=== PATIENT | male | born 1970 | race Caucasian/White ===

== ENCOUNTER 2019-01-29 10:46 | Emergency (ER) | payer SELFPAY ==
[~2019-01-29] VITALS: Ht 180.3 cm; Wt 88.5 kg
[~2019-01-29 10:46] MED LIST: GENT3.5O18 OD; HYDR-1231 PO
[2019-01-29] MEDS ORDERED: ASPIRIN 81 MG CHEW (CHILDREN'S ASA) PO ONE (11:30)
--- NOTE | 2019-01-29 11:33 | ED Chest Pain ---
General Chief Complaint: Chest Wall Stated Complaint: HIGH BP;NECK PAIN Nursing Triage Note: pt arrives from [facility] with c/o chest pain x3 days. pt states this pain radiates to neck. pt states history of htn. pt denies cough, n/v/d/fever. pt denies taking asa. pt states he has been painting his house for 3 days as well. Nursing Sepsis Screen: No Definite Risk Source: patient Exam Limitations: no limitations History of Present Illness Date Seen by Provider: Jan 29, 2019 Time Seen by Provider: 11:31 Initial Comments To ER per private vehicle with reports of right-sided chest pain that radiates into the right side of his neck for 3 days. History of hypertension. No cough. Slight shortness of breath. He's been painting his house for the past few days which he thinks maybe contributed to this pain. Pain is in the right side of his neck as well. Currently has several bad teeth and is scheduled to have these removed by Dr. Saleh tomorrow. He is on antibiotic. His main concern is that his infection has spread from his mouth to his neck or chest. Timing/Duration: 2-3 days Severity/Quality: moderate Location: central Radiation: neck ASA po PRODUCTION DIRECTOR: No NTG SL PRODUCTION DIRECTOR: No Associated Symptoms: shortness of breath Allergies and Home Medications Allergies Coded Allergies: No Known Drug Allergies (Unverified , 10/18/13) Home Medications Gentamicin Sulfate 3.5 Gm Oint..gm., 0 OD TID APPLY THIN STRIP Prescribed by: NADIRA YADAV on 10/18/13 1413 Hydrocodone Bit/Acetaminophen 1 Tab Tablet, 1-2 TAB PO Q6H PRN for PAIN Prescribed by: NADIRA YADAV on 10/18/13 1413 Patient Home Medication List Home Medication List Reviewed: Yes Review of Systems Review of Systems Constitutional: see HPI EENTM: No Symptoms Reported Respiratory: No Symptoms Reported Cardiovascular: No Symptoms Reported Gastrointestinal: See HPI Genitourinary: No Symptoms Reported Musculoskeletal: see HPI Skin: no symptoms reported Psychiatric/Neurological: No Symptoms Reported Endocrine: No Symptoms Reported Hematologic/Lymphatic: No Symptoms Reported Past Avqpogl-Vauaig-Cfzvwk Hx Patient Social History Alcohol Use: Denies Use Recreational Drug Use: No Smoking Status: Current Everyday Smoker Recent Foreign Travel: No Contact w/Someone Who Travel: No Recent Infectious Disease Expo: No Physical Abuse: No Sexual Abuse: No Mistreated: No Fear: No Past Medical History Surgeries: No Respiratory: No Cardiac: No Neurological: No Reproductive Disorders: No Gastrointestinal: No Musculoskeletal: No Endocrine: No Cancer: No Psychosocial: No Physical Exam Vital Signs Vital Signs - First Documented 01/29/19 11:26 Temp 98.3 Pulse 64 Resp 12 B/P (MAP) 156/103 (120) Pulse Ox 98 O2 Delivery Room Air Capillary Refill : Less Than 3 Seconds Height, Weight, BMI Height: 5'11" Weight: 195lbs. oz. 88.012617pe; 27.19 BMI Method:Stated General Appearance: No Apparent Distress, WD/WN HEENT: PERRL/EOMI, TMs Normal, Other (poor dentition no palpable buccal absc ess, mild adenopathy submandibular and right anterior cervical chain.) Respiratory: No Accessory Muscle Use, No Respiratory Distress Cardiovascular: Regular Rate, Rhythm, Normal Peripheral Pulses Gastrointestinal: Non Tender, Soft Extremity: Normal Capillary Refill, Normal Inspection Neurologic/Psychiatric: Alert, Oriented x3 Skin: Normal Color, Warm/Dry Progress/Results/Core Measures Results/Orders Lab Results Laboratory Tests Test 01/29/19 11:27 Range/Units White Blood Count 8.8 4.3-11.0 10^3/uL Red Blood Count 5.14 4.35-5.85 10^6/uL Hemoglobin 15.6 13.3-17.7 G/DL Hematocrit 47 40-54 % Mean Corpuscular Volume 91 80-99 FL Mean Corpuscular Hemoglobin 30 25-34 PG Mean Corpuscular Hemoglobin Concent 34 32-36 G/DL Red Cell Distribution Width 13.3 10.0-14.5 % Platelet Count 343 130-400 10^3/uL Mean Platelet Volume 9.4 7.4-10.4 FL Neutrophils (%) (Auto) 68 42-75 % Lymphocytes (%) (Auto) 19 12-44 % Monocytes (%) (Auto) 9 0-12 % Eosinophils (%) (Auto) 3 0-10 % Basophils (%) (Auto) 1 0-10 % Neutrophils # (Auto) 6.0 1.8-7.8 X 10^3 Lymphocytes # (Auto) 1.7 1.0-4.0 X 10^3 Monocytes # (Auto) 0.8 0.0-1.0 X 10^3 Eosinophils # (Auto) 0.3 0.0-0.3 10^3/uL Basophils # (Auto) 0.0 0.0-0.1 10^3/uL D-Dimer 0.54 H 0.00-0.49 UG/ML Sodium Level 139 135-145 MMOL/L Potassium Level 4.2 3.6-5.0 MMOL/L Chloride Level 101 98-107 MMOL/L Carbon Dioxide Level 30 21-32 MMOL/L Anion Gap 8 5-14 MMOL/L Blood Urea Nitrogen 12 7-18 MG/DL Creatinine 0.93 0.60-1.30 MG/DL Estimat Glomerular Filtration Rate > 60 BUN/Creatinine Ratio 13 Glucose Level 115 H 70-105 MG/DL Calcium Level 9.6 8.5-10.1 MG/DL Corrected Calcium 9.4 8.5-10.1 MG/DL Magnesium Level 1.6 1.6-2.4 MG/DL Total Bilirubin 0.5 0.1-1.0 MG/DL Aspartate Amino Transf (AST/SGOT) 17 5-34 U/L Alanine Aminotransferase (ALT/SGPT) 14 0-55 U/L Alkaline Phosphatase 94 40-136 U/L Troponin I < 0.028 <0.028 NG/ML Total Protein 7.9 6.4-8.2 GM/DL Albumin 4.2 3.2-4.5 GM/DL My Orders Orders - NADIRA YADAV MEDICAL BILLING AND CODING SPECIALIST Cbc With Automated Diff (01/29/19 11:26) Comprehensive Metabolic Panel (01/29/19 11:26) Ua Culture If Indicated (01/29/19 11:26) Ed Iv/Invasive Line Start (01/29/19 11:26) Troponin I (01/29/19 11:26) Fibrin Degradation Products (01/29/19 11:26) Aspirin Chewable Tablet (Baby Aspirin Ch (01/29/19 11:30) Ekg Tracing (01/29/19 11:26) Magnesium (01/29/19 11:26) Ct Neck (Soft Tissue) W (01/29/19 11:41) Ct Angio Chest W (01/29/19 11:41) Iohexol Injection (Omnipaque 350 Mg/Ml 1 (01/29/19 12:15) Received Contrast (Hold Metformin- Contr (01/29/19 12:15) Sodium Chloride Flush (Catheter Flush Sy (01/29/19 12:15) Ns (Ivpb) (Sodium Chloride 0.9% Ivpb Bag (01/29/19 12:15) Medications Given in ED Current Medications Medications Dose Ordered Sig/Willie Route Start Time Stop Time Status Last Admin Dose Admin Aspirin 324 mg ONCE ONCE PO 01/29/19 11:30 01/29/19 11:31 DC 01/29/19 11:49 324 MG Iohexol 100 ml ONCE ONCE IV 01/29/19 12:15 01/29/19 12:16 DC 01/29/19 12:33 75 ML Sodium Chloride 10 ml NEEDED PRN IV 01/29/19 12:15 01/29/19 12:33 10 ML Sodium Chloride 100 ml ONCE ONCE IV 01/29/19 12:15 01/29/19 12:16 DC 01/29/19 12:33 80 ML Vital Signs/I&O 01/29/19 11:26 Temp 98.3 Pulse 64 Resp 12 B/P (MAP) 156/103 (120) Pulse Ox 98 O2 Delivery Room Air Blood Pressure Mean: 120 Departure Impression Primary Impression: Muscle strain Additional Impression: Strain of chest wall Qualified Codes: S29.011A - Strain of muscle and tendon of front wall of thorax, initial encounter Disposition: 01 HOME, SELF-CARE Condition: Stable Departure-Patient Inst. Decision time for Depature: 13:16 Referrals: NO,LOCAL PHYSICIAN (PCP/Family) Primary Care Physician Patient Instructions: Muscle Strain Add. Discharge Instructions: 1. Return to ER for any concerns 2. Follow-up with your doctor next week 3. All discharge instructions reviewed with patient and/or family. Voiced understanding. NADIRA YADAV APRN Jan 29, 2019 11:33
[2019-01-29 11:37] LABS: BASOPHILS % (AUTO) 1 % (0-10); EOSINOPHILS # (AUTO) 0.3 10^3/uL (0.0-0.3); EOSINOPHILS % (AUTO) 3 % (0-10); HEMATOCRIT 47 % (40-54); HEMOGLOBIN 15.6 G/DL (13.3-17.7); LYMPHOCYTES # (AUTO) 1.7 X 10^3 (1.0-4.0); LYMPHOCYTES % (AUTO) 19 % (12-44); MEAN CORPUSCULAR HEMOGLOBIN 30 PG (25-34); MEAN CORPUSCULAR HGB CONC 34 G/DL (32-36); MEAN CORPUSCULAR VOLUME 91 FL (80-99); MEAN PLATELET VOLUME 9.4 FL (7.4-10.4); MONOCYTES # (AUTO) 0.8 X 10^3 (0.0-1.0); MONOCYTES % (AUTO) 9 % (0-12); NEUTROPHILS % (AUTO) 68 % (42-75); PLATELET COUNT 343 10^3/uL (130-400); RED CELL DISTRIBUTION WIDTH 13.3 % (10.0-14.5); WHITE BLOOD COUNT 8.8 10^3/uL (4.3-11.0)
[2019-01-29 11:52] LABS: ALANINE AMINOTRANSFERASE 14 U/L (0-55); ALBUMIN 4.2 GM/DL (3.2-4.5); ALKALINE PHOSPHATASE 94 U/L (40-136); BILIRUBIN,TOTAL 0.5 MG/DL (0.1-1.0); BUN/CREATININE RATIO 13; CALCIUM 9.6 MG/DL (8.5-10.1); CARBON DIOXIDE 30 MMOL/L (21-32); CHLORIDE 101 MMOL/L (98-107); CREATININE SERUM 0.93 MG/DL (0.60-1.30); GFR ESTIMATED > 60; GLUCOSE 115 MG/DL (70-105); MAGNESIUM 1.6 MG/DL (1.6-2.4); POTASSIUM 4.2 MMOL/L (3.6-5.0); SODIUM 139 MMOL/L (135-145); TOTAL PROTEIN 7.9 GM/DL (6.4-8.2)
[2019-01-29] MEDS ORDERED: NS 100 ML (IVPB) BAG IV ONE (12:15)
[2019-01-29] MEDS ORDERED: IOHEXOL 350 MG/ML 100 ML (OMNIPAQUE 350) VIAL IV ONE (12:15)
[2019-01-29] MEDS ORDERED: CATHETER FLUSH 10 ML SYR IV PRN (12:15)
[2019-01-29] MEDS ORDERED: HOLD METFORMIN - RECEIVED CONTRAST 20 ML VIAL IV SCH (12:15)
--- NOTE | 2019-01-29 12:40 | Diagnostic Imaging Report ---
PROCEDURE: CT angiography of the chest with contrast. TECHNIQUE: Multiple contiguous axial images were obtained through the chest after uneventful bolus administration of intravenous contrast. 3D reconstructed CTA MIP acquisitions were also performed. Auto Exposure Controls were utilized during the CT exam to meet ALARA standards for radiation dose reduction. INDICATION: Neck and chest pain. FINDINGS: There is suboptimal opacification of the segmental and subsegmental pulmonary arterial branches on a technical basis. No evidence for central PE. The aorta is nonaneurysmal and patent. This patient has a small nodule of 6-7 mm in the right lower lobe near the pleura best seen on image 100 series 4. Etiology indeterminate but followup recommended. Repeat chest CT in 6 months time suggested. No other lung mass. No evidence for thoracic adenopathy. No chest effusion. The visualized upper abdomen nonacute. IMPRESSION: No evidence for central PE. Patent nonaneurysmal aorta. Indeterminate subcentimeter right lower lobe nodule warranting followup within 6 months. Dictated by: Dictated on workstation # [id number]
--- NOTE | 2019-01-29 12:43 | Diagnostic Imaging Report ---
PROCEDURE: CT neck soft tissue with contrast. TECHNIQUE: Multiple contiguous axial images were obtained through the neck after the administration of contrast. Auto Exposure Controls were utilized during the CT exam to meet ALARA standards for radiation dose reduction. INDICATION: Chest pain, right-sided neck pain, three days duration. FINDINGS: No cervical abscess or acute fluid collection. Nasopharynx, oropharynx and hypopharynx were unremarkable. No airway embarrassment. The prevertebral and retropharyngeal spaces appeared normal. Parotid, submandibular and thyroid glands unremarkable. The supraclavicular fossa and thoracic inlet unremarkable. The osseous structures in the neck unremarkable. No acute finding. No suspicious mass. IMPRESSION: No mass, fluid collection or airway embarrassment. No inflammatory process or acute findings identified. Dictated by: Dictated on workstation # [id number]
[2019-01-29 13:44] VITALS: BP 156/103
== END 2019-01-29 13:44 | disposition home or self-care (01) ==
LOC: EDUNIT# 10:46 → ER 10:48
DX: S29.011A Strain of muscle and tendon of front wall of thorax, initial encounter (principal); I10 Essential (primary) hypertension; F17.200 Nicotine dependence, unspecified, uncomplicated; X50.1XXA Overexertion from prolonged static or awkward postures, initial encounter; Y93.89 Activity, other specified; Y92.009 Unspecified place in unspecified non-institutional (private) residence as the place of occurrence of the external cause
CPT/HCPCS: 36415; 70491; 71275; 80053; 83735; 84484; 85025; 85379; 93005